=== PATIENT | female | born 1985 | race Caucasian/White ===

== ENCOUNTER 2018-04-13 14:18 | Outpatient (CLI) | payer MEDICAID | END 2018-04-13 15:37 | disposition home or self-care (01) | LOC: OBT 14:18 → L-D 14:18 → OBT 15:37 | DX: O24.410 Gestational diabetes mellitus in pregnancy, diet controlled (principal); Z3A.37 37 weeks gestation of pregnancy | CPT/HCPCS: 76815; 76818 ==

== ENCOUNTER 2018-04-16 14:33 | Outpatient (CLI) | payer MEDICAID | END 2018-04-16 15:55 | disposition home or self-care (01) | LOC: OBT 14:33 → L-D 14:33 → OBT 15:55 | DX: O24.419 Gestational diabetes mellitus in pregnancy, unspecified control (principal); Z3A.38 38 weeks gestation of pregnancy | CPT/HCPCS: 76818; 82962 ==

== ENCOUNTER 2018-04-19 18:12 | Outpatient (CLI) | payer MEDICAID | END 2018-04-19 21:18 | disposition home or self-care (01) | LOC: OBT 18:12 → L-D 18:13 → OBT 21:18 | DX: O24.419 Gestational diabetes mellitus in pregnancy, unspecified control (principal); Z3A.38 38 weeks gestation of pregnancy | CPT/HCPCS: 76818 ==

== ENCOUNTER 2018-04-20 05:30 | Inpatient (IN) | payer MEDICAID ==
[2018-04-20] MEDS ORDERED: AMPICILLIN 2 GM/NS (PMX) 100 ML (05:42)
[2018-04-20] MEDS ORDERED: OXYTOCIN 30 UNITS/LR 500 ML IV ×3 (05:42→07:00)
[2018-04-20] MEDS ORDERED: CARBOPROST 250 MCG INJ IM ×2 (06:00→07:00)
[2018-04-20] MEDS ORDERED: METHYLERGONOVINE 0.2 MG INJ IM ×2 (06:00→07:00)
[2018-04-20] MEDS ORDERED: LIDOCAINE 1% (MPF) 30 ML INJ INJ (06:00)
[2018-04-20] MEDS ORDERED: MISOPROSTOL 200 MCG TAB PR ×2 (06:00→07:00)
[2018-04-20] MEDS ORDERED: IBUPROFEN 600 MG TAB PO (06:00)
[2018-04-20] MEDS ORDERED: BUTORPHANOL 2 MG INJ IV (06:00)
[2018-04-20 06:02] LABS: ADD MAN DIFF? NO
[2018-04-20 06:14] LABS: BASOPHIL # 0.1 10^3/ul (0.0-0.1); BASOPHILS % 0.5 % (0.0-2.0); EOSINOPHILS # 0.1 10^3/ul (0.0-0.5); EOSINOPHILS % 0.6 % (0.0-7.0); HEMATOCRIT 34.1 % (37.0-47.0); HEMOGLOBIN 11.2 g/dl (12.0-16.0); LYMPHOCYTES # 1.2 10^3/ul (0.8-2.9); LYMPHOCYTES % 13.1 % (15.0-51.0); MEAN CORPUSCULAR HEMOGLOBIN 27.1 pg (29.0-33.0); MEAN CORPUSCULAR HGB CONC 32.8 g/dl (32.0-37.0); MEAN CORPUSCULAR VOLUME 82.4 fl (82.0-101.0); MEAN PLATELET VOLUME 12.2 fl (7.4-10.4); MONOCYTE # 0.6 10^3/ul (0.3-0.9); MONOCYTES % 5.9 % (0.0-11.0); NEUTROPHIL # 7.2 10^3/ul (1.6-7.5); NEUTROPHILS % 78.4 % (39.0-77.0); PLATELET COUNT 173 10^3/UL (140-415); RED BLOOD COUNT 4.14 10^6/ul (4.20-5.40); RED CELL DISTRIBUTION WIDTH 18.6 % (11.5-14.5)
[2018-04-20 06:14] LABS: WHITE BLOOD COUNT 9.3 10^3/ul (4.8-10.8)
[2018-04-20] MEDS: OXYTOCIN 30 UNITS/LR 500 ML IV ×3 (06:29→16:14)
[2018-04-20] MEDS: AMPICILLIN 2 GM/NS (PMX) 100 ML IV (06:30)
[2018-04-20] MEDS: LACTATED RINGER'S 1,000 ML IV (06:30)
[2018-04-20] MEDS: LACTATED RINGER'S 1,000 ML IV* ×3 (06:51→22:51)
[2018-04-20] MEDS ORDERED: HYDROCODONE/APAP (5/325) TAB PO (07:00)
[2018-04-20 07:03] LABS: INR 0.87; PROTIME 11.9 Sec (11.9-14.9); PT RATIO 0.9
[2018-04-20 07:04] LABS: PARTIAL THROMBOPLASTIN TIME 26.8 Sec (23.0-35.0)
[2018-04-20] MEDS: IBUPROFEN 600 MG TAB PO ×3 (07:16→17:29)
[2018-04-20 08:03] LABS: HEPATITIS B SURFACE ANTIGEN NEGATIVE (NEGATIVE)
[2018-04-20] MEDS: LANOLIN HPA 1 PKT TOP (09:17)
[2018-04-20] MEDS: BENZOCAINE 20% 56 ML SPRAY TOP (09:17)
[2018-04-20] MEDS ORDERED: AMPICILLIN 1 GM/NS (PMX) 50 ML IV (10:00)
[2018-04-20 17:11] LABS: RAPID PLASMA REAGIN NONREACTIVE (NR)
[2018-04-21] MEDS: IBUPROFEN 600 MG TAB PO ×5 (00:13→23:54)
[2018-04-21] MEDS: LACTATED RINGER'S 1,000 ML IV* ×3 (06:11→22:51)
[2018-04-21 08:21] LABS: ADD MAN DIFF? NO
[2018-04-21 08:34] LABS: WHITE BLOOD COUNT 7.8 10^3/ul (4.8-10.8)
[2018-04-21 08:34] LABS: BASOPHILS % 0.5 % (0.0-2.0); EOSINOPHILS # 0.1 10^3/ul (0.0-0.5); EOSINOPHILS % 0.8 % (0.0-7.0); HEMATOCRIT 27.1 % (37.0-47.0); HEMOGLOBIN 8.8 g/dl (12.0-16.0); LYMPHOCYTES # 1.2 10^3/ul (0.8-2.9); LYMPHOCYTES % 14.7 % (15.0-51.0); MEAN CORPUSCULAR HEMOGLOBIN 27.1 pg (29.0-33.0); MEAN CORPUSCULAR HGB CONC 32.5 g/dl (32.0-37.0); MEAN CORPUSCULAR VOLUME 83.4 fl (82.0-101.0); MEAN PLATELET VOLUME 12.2 fl (7.4-10.4); MONOCYTE # 0.4 10^3/ul (0.3-0.9); MONOCYTES % 4.9 % (0.0-11.0); NEUTROPHILS % 77.2 % (39.0-77.0); PLATELET COUNT 148 10^3/UL (140-415); RED BLOOD COUNT 3.25 10^6/ul (4.20-5.40); RED CELL DISTRIBUTION WIDTH 19.2 % (11.5-14.5)
[2018-04-22] MEDS: IBUPROFEN 600 MG TAB PO ×2 (04:56→11:37)
[2018-04-22] MEDS: LACTATED RINGER'S 1,000 ML IV* (06:51)
[2018-04-22] MEDS: DIPHTH/TET/ACEL PERTUSS (ADULT) 0.5 ML VIAL IM* (09:03)
== END 2018-04-22 13:20 | disposition home or self-care (01) | DRG 807 ==
LOC: OBT 05:30 → L-D 05:35 → PP1 08:10
PROVIDERS: Obstetrics & Gynecology
PROC: 10E0XZZ Delivery of Products of Conception, External Approach (ICD-10-PCS; principal; 2018-04-20)
PROC: 0KQM0ZZ Repair Perineum Muscle, Open Approach (ICD-10-PCS; 2018-04-20)
PROC: 3E033VJ Introduction of Other Hormone into Peripheral Vein, Percutaneous Approach (ICD-10-PCS; 2018-04-20)
DX: O70.1 Second degree perineal laceration during delivery (principal); Z37.0 Single live birth; Z3A.38 38 weeks gestation of pregnancy
CPT/HCPCS: 76818; 85025; 85610; 85730; 86592; 86850; 86900; 86901; 87340